=== PATIENT | male | born 1990 | race Caucasian/White ===

== ENCOUNTER 2021-02-02 23:06 | Emergency (ER) | payer BC ==
[2021-02-03 07:38] LABS: HEMOGLOBIN 15.4 gm/dl (14.0-17.5); RED BLOOD COUNT 5.63 M/UL (4.20-5.50); WHITE BLOOD COUNT 3.9 K/UL (4.5-11.0)
[2021-02-03 07:52] LABS: BUN/CREATININE RATIO 13 (0-10)
[2021-02-03] MEDS ORDERED: DOXYCYCLINE HY100 MG PO (09:07)
== END 2021-02-03 13:41 | disposition home or self-care (01) ==
LOC: ER1 23:06
PROVIDERS: Emergency Medicine
DX: U07.1 COVID-19 (principal); J12.82 Pneumonia due to coronavirus disease 2019; E11.9 Type 2 diabetes mellitus without complications
CPT/HCPCS: 71045; 80053; 82550; 82553; 83874; 84484; 85025; 85379; 86140; 93005; 99284; M0239

== ENCOUNTER 2021-07-22 00:17 | Inpatient (IN) | payer BC ==
[~2021-07-22] VITALS: Ht 193 cm; Wt 136.1 kg
[~2021-07-22 00:17] MED LIST: DOXYCYCLINE HY100 MG PO
[2021-07-22 01:57] LABS: RED BLOOD COUNT 6.63 M/UL (4.20-5.50)
[2021-07-22 02:08] LABS: BUN/CREATININE RATIO 19 (0-10)
[2021-07-22] MEDS ORDERED: FARXIGA10 MG PO (10:49)
[2021-07-22] MEDS ORDERED: SIMVASTATIN20 MG PO (10:50)
[2021-07-22] MEDS ORDERED: GLUCOTROL5 MG PO (10:50)
[2021-07-22] MEDS ORDERED: EPINEPHRIN0.3 MG/0.3 IM (11:59)
[2021-07-23 00:02] LABS: ACINETOBACTER BAUMANNII Not Detected (Negative); CANDIDA ALBICANS Not Detected (Negative); CANDIDA KRUSEI Not Detected (Negative); CANDIDA TROPICALIS Not Detected (Negative); ESCHERICHIA COLI Not Detected (Negative); HAEMOPHILUS INFLUENZAE Not Detected (Negative); KLEBSIELLA OXYTOCA Not Detected (Negative); KLEBSIELLA PNEUMONIAE Not Detected (Negative); KPC-CARBAPENEM-RESISTANCE GENE Not Detected (Negative); PROTEUS Not Detected (Negative); PSEUDOMONAS AERUGINOSA Not Detected (Negative); SERRATIA MARCESANS Not Detected (Negative); STAPHYLOCOCCUS Not Detected (Negative); STAPHYLOCOCCUS AUREUS Not Detected (Negative); STREP AGALACTIAE (GROUP B) Not Detected (Negative); STREP PYOGENES (GROUP A) Not Detected (Negative); STREPTOCOCCUS Not Detected (Negative); mecA (METHICILLIN RESIST GENE Not Detected (Negative); vanA/B (VANCOMYCIN RESIST GENE Not Detected (Negative)
[2021-07-23 01:07] LABS: ENTEROCOCCUS DETECTED (Negative)
[2021-07-23 06:43] LABS: HEMOGLOBIN 13.5 gm/dl (14.0-17.5); RED BLOOD COUNT 5.14 M/UL (4.20-5.50); WHITE BLOOD COUNT 6.7 K/UL (4.5-11.0)
[2021-07-23 07:11] LABS: HBSAG SCREEN Negative (Negative); HEP A AB, IGM Negative (Negative); HEP B CORE AB, IGM Negative (Negative); HEP C VIRUS AB <0.1 (0.0-0.9)
[2021-07-23 07:11] LABS: BUN/CREATININE RATIO 20 (0-10)
[2021-07-24 06:30] LABS: HEMOGLOBIN 14.5 gm/dl (14.0-17.5); RED BLOOD COUNT 5.59 M/UL (4.20-5.50); WHITE BLOOD COUNT 7.8 K/UL (4.5-11.0)
[2021-07-24 06:40] LABS: BUN/CREATININE RATIO 12 (0-10)
[2021-07-25 06:02] LABS: HEMOGLOBIN 14.2 gm/dl (14.0-17.5); RED BLOOD COUNT 5.38 M/UL (4.20-5.50); WHITE BLOOD COUNT 7.6 K/UL (4.5-11.0)
[2021-07-25 06:17] LABS: BUN/CREATININE RATIO 11 (0-10)
[2021-07-26 08:09] LABS: HEMOGLOBIN 14.5 gm/dl (14.0-17.5); RED BLOOD COUNT 5.51 M/UL (4.20-5.50); WHITE BLOOD COUNT 6.7 K/UL (4.5-11.0)
[2021-07-26 08:49] LABS: BUN/CREATININE RATIO 13 (0-10)
--- NOTE | 2021-07-26 13:14 | NUR ---
20g x 10cm midline placed in the left basilic vein, using ultrasound. Aspirates and flushes well. No complications. Plan is for 12 days of antibiotics.
[2021-07-26] MEDS ORDERED: UNASYN 3 GM VIAL3 GM INJ (13:16)
== END 2021-07-26 15:19 | disposition home or self-care (01) | DRG 372 ==
LOC: ER1 00:17 → M/S 08:11 → CDU 08:11 → M/S 08:11
PROVIDERS: Emergency Medicine; Physician Assistant Medical; ADMIT Internal Medicine
PROC: B24BZZ4 Ultrasonography of Heart with Aorta, Transesophageal (ICD-10-PCS; principal; 2021-07-24)
DX: A04.8 Other specified bacterial intestinal infections (principal); R78.81 Bacteremia; E87.2 Acidosis; Z20.822 Contact with and (suspected) exposure to COVID-19; E87.6 Hypokalemia; B95.2 Enterococcus as the cause of diseases classified elsewhere; K76.0 Fatty (change of) liver, not elsewhere classified; E11.9 Type 2 diabetes mellitus without complications; Z79.4 Long term (current) use of insulin; Z82.49 Family history of ischemic heart disease and other diseases of the circulatory system; Z83.3 Family history of diabetes mellitus
CPT/HCPCS: ECHO; 36415; 71045; 76870; 80048; 80053; 80074; 80202; 80307; 81001; 82009; 82150; 82550; 82553; 82800; 82962; 83605; 83690; 83735; 83874; 83880; 84100; 84439; 84443; 84484; 85025; 85027; 86140; 87040; 87077; 87150; 87186; 93005; 93306; 96374; 96375; 96376; 99285; C1751; G0378; J0290; J0696; J1885; J2405; J3370; J7030; J7060; Q9967; U0002

== ENCOUNTER → 2021-07-27 | Outpatient (CLI) | payer BC ==
[~2021-07-27] VITALS: Ht 193 cm; Wt 136.1 kg
[~2021-07-27] MED LIST changes: +EPINEPHRIN0.3 MG/0.3 IM; +FARXIGA10 MG PO; +GLUCOTROL5 MG PO; +SIMVASTATIN20 MG PO; +UNASYN 3 GM VIAL3 GM INJ
== END ==
LOC: OPSV 12:32
DX: R78.81 Bacteremia (principal); J02.9 Acute pharyngitis, unspecified
CPT/HCPCS: 96365; J0878

== ENCOUNTER → 2021-07-28 | Outpatient (CLI) | payer BC | LOC: OPSV 06:46 | DX: R78.81 Bacteremia (principal) | CPT/HCPCS: 96365; J0878 ==

== ENCOUNTER → 2021-07-29 | Outpatient (CLI) | payer BC ==
[~2021-07-29] VITALS: Ht 193 cm; Wt 136.0 kg
== END ==
LOC: OPSV 06:40
DX: R78.81 Bacteremia (principal)
CPT/HCPCS: 96365; J0878

== ENCOUNTER → 2021-07-30 | Outpatient (CLI) | payer BC ==
[~2021-07-30] VITALS: Ht 193 cm; Wt 136.1 kg
== END ==
LOC: OPSV 06:51
DX: R78.81 Bacteremia (principal)
CPT/HCPCS: 96365; J0878

== ENCOUNTER → 2021-07-31 | Outpatient (CLI) | payer BC ==
[~2021-07-31] VITALS: Ht 193 cm; Wt 136.1 kg
== END ==
LOC: OPSV 06:49
DX: R78.81 Bacteremia (principal); J02.9 Acute pharyngitis, unspecified
CPT/HCPCS: 96365; J0878

== ENCOUNTER → 2021-08-01 | Outpatient (CLI) | payer BC ==
[~2021-08-01] VITALS: Ht 193 cm; Wt 136.1 kg
== END ==
LOC: OPSV 06:44
DX: J02.9 Acute pharyngitis, unspecified (principal); R78.81 Bacteremia
CPT/HCPCS: 96365; J0878

== ENCOUNTER → 2021-08-02 | Outpatient (CLI) | payer BC | LOC: OPSV 06:45 | DX: R78.81 Bacteremia (principal) | CPT/HCPCS: 96365; J0878 ==

== ENCOUNTER → 2021-08-03 | Outpatient (CLI) | payer BC ==
[~2021-08-03] VITALS: Ht 193 cm; Wt 136.1 kg
== END ==
LOC: OPSV 06:52
DX: R78.81 Bacteremia (principal)
CPT/HCPCS: 96365; J0878

== ENCOUNTER → 2021-08-04 | Outpatient (CLI) | payer BC ==
[~2021-08-04] VITALS: Ht 193 cm; Wt 136.1 kg
== END ==
LOC: OPSV 06:49
DX: R78.81 Bacteremia (principal)
CPT/HCPCS: 96365; J0878

== ENCOUNTER → 2021-08-05 | Outpatient (CLI) | payer BC ==
[~2021-08-05] VITALS: Ht 193 cm; Wt 136.1 kg
== END ==
LOC: OPSV 07:00
DX: R78.81 Bacteremia (principal)
CPT/HCPCS: 96365; J0878

== ENCOUNTER → 2021-08-06 | Outpatient (CLI) | payer BC ==
[~2021-08-06] VITALS: Ht 193 cm; Wt 136.1 kg
== END ==
LOC: OPSV 07:00
DX: R78.81 Bacteremia (principal)
CPT/HCPCS: 96365; J0878

== ENCOUNTER → 2021-08-07 | Outpatient (CLI) | payer BC ==
[~2021-08-07] VITALS: Ht 193 cm; Wt 136.1 kg
== END ==
LOC: OPSV 06:52
DX: R78.81 Bacteremia (principal)
CPT/HCPCS: 96365; J0878